=== PATIENT | female | born 1960 | race Asian ===

== ENCOUNTER 2017-04-12 09:01 | Emergency (ER) | payer BC, OTHER ==
[~2017-04-12] VITALS: Ht 157.5 cm; Wt 48.6 kg
[2017-04-12] MEDS ORDERED: RALO60 PO (09:06)
[2017-04-12] MEDS ORDERED: AMLO-511 PO (09:06)
[2017-04-12] MEDS ORDERED: ASCO500 PO (09:06)
[2017-04-12] MEDS ORDERED: FLAX100020 PO (09:06)
[2017-04-12 10:42] LABS: BASOPHILS # (AUTO) 0.02 K/uL (0.00-0.20); BASOPHILS % (AUTO) 0.4 % (0.0-2.0); EOSINOPHILS # (AUTO) 0.02 K/uL (0.00-0.70); EOSINOPHILS % (AUTO) 0.28 % (1.0-6.0); HEMATOCRIT 41.7 % (36-46); HEMOGLOBIN 13.1 g/dL (12.0-16.0); LYMPHOCYTES % (AUTO) 18.4 % (22.0-44.0); MEAN CORPUSCULAR HEMOGLOBIN 21.9 pg (26.0-34.0); MEAN CORPUSCULAR HGB CONC 31.5 G/dL (31.0-37.0); MEAN CORPUSCULAR VOLUME 70 fL (80-100); MONOCYTES # (AUTO) 0.5 K/uL (0.1-1.0); MONOCYTES % (AUTO) 8.4 % (2.0-9.0); NEUTROPHILS # (AUTO) 4.1 K/uL (1.8-7.7); NEUTROPHILS % (AUTO) 72.5 % (40.0-70.0); PLATELET COUNT (AUTO) 275 K/uL (150-450); RED BLOOD CELL COUNT(AUTO) 5.99 MIL/uL (4.00-5.20); RED CELL DISTRIBUTION WIDTH 14.8 % (11.5-14.5)
[2017-04-12 10:53] LABS: ANION GAP 10 mmol/L (8-16); CALCIUM, TOTAL 9.2 mg/dL (8.8-10.5); CARBON DIOXIDE 27 mmol/L (22-29); CHLORIDE 106 mmol/L (98-107); CREATININE 0.82 mg/dL (0.60-1.30); GLOMERULAR FILTR. RATE CALC > 60 mL/min (>60); GLUCOSE,RANDOM 104 mg/dL (70-110); POTASSIUM 3.6 mmol/L (3.5-5.1); SODIUM SERUM 143 mmol/L (136-145); UREA NITROGEN, BLOOD 10 mg/dL (7-18)
[2017-04-12 10:59] LABS: ALANINE AMINOTRANSFERASE 30 U/L (12-78); ALBUMIN 3.8 g/dL (3.4-5.0); ALKALINE PHOSPHATASE 87 U/L (46-116); ASPARTATE AMINOTRANSFERASE 16 U/L (15-37); BILIRUBIN,TOTAL 0.4 mg/dL (0.1-1.0); CREATINE KINASE, TOTAL 84 U/L (26-192); TOTAL PROTEIN, SERUM 7.7 g/dL (6.4-8.2)
[2017-04-12 11:08] LABS: B-TYPE NATRIURETIC PEPTIDE 11 pg/mL (0-100)
[2017-04-12] MEDS ORDERED: MECLIZINE HCL 25 MG TABLET PO ONE (11:30)
[2017-04-12 11:46] LABS: AMPHET/METH SCREEN,URINE NEGATIVE (NEGATIVE); BARBITURATE SCREEN, URINE NEGATIVE (NEGATIVE); BENZODIAZEPINES SCREEN,URINE NEGATIVE (NEGATIVE); CANNABINOID SCREEN,URINE NEGATIVE (NEGATIVE); COCAINE SCREEN,URINE NEGATIVE (NEGATIVE); METHADONE SCREEN, URINE NEGATIVE (NEGATIVE); OPIATE SCREEN,URINE NEGATIVE (NEGATIVE)
[2017-04-12 11:48] LABS: PHENCYCLIDINE SCREEN,URINE NEGATIVE (NEGATIVE)
[2017-04-12 11:51] LABS: APPEARANCE,URINE CLEAR (CLEAR); BILIRUBIN,URINE NEGATIVE (NEGATIVE); GLUCOSE, URINE (UA) NEGATIVE (NEGATIVE); KETONES,URINE NEGATIVE (NEGATIVE); LEUKOCYTE ESTERASE ,URINE NEGATIVE (NEGATIVE); NITRATE,URINE NEGATIVE (NEGATIVE); OCCULT BLOOD,URINE NEGATIVE (NEGATIVE); PROTEIN,URINE NEGATIVE (NEGATIVE); UROBILINOGEN,URINE 0.2 mg/dL (<=1.0)
[2017-04-12 12:56] VITALS: BP 118/72
== END 2017-04-12 13:03 | disposition home or self-care (01) ==
LOC: EMS 09:03
DX: H81.399 Other peripheral vertigo, unspecified ear (principal); I10 Essential (primary) hypertension; M81.0 Age-related osteoporosis without current pathological fracture; Z79.899 Other long term (current) drug therapy
CPT/HCPCS: 82271; 99285